=== PATIENT | male | born 1965 | race Caucasian/White ===

== ENCOUNTER 2021-01-24 07:31 | Emergency (ER) | payer OTHER ==
[~2021-01-24] VITALS: Wt 90.7 kg
[~2021-01-24 07:31] MED LIST: AVELOX400 MG PO; MOBIC15 MG PO; NORFLEX100 MG PO; PROTONIX40 MG PO; VICODIN 500 MG-1 TAB PO
[2021-01-24 09:53] LABS: HEMATOCRIT 46.5 % (42.0-52.0); MEAN CELL VOLUME 86.8 fl (80.0-94.0); MEAN CORPUSCULAR HGB CONC 34.6 g/dl (33.0-37.0); MEAN PLATELET VOLUME 10.2 fl (9.6-12.3); PLATELET COUNT AUTOMATED 130 10*3/uL (130-400); RED BLOOD COUNT 5.36 10*6/uL (4.50-5.90); RED CELL DISTRI WIDTH 12.7 % (0-14.5); WHITE BLOOD COUNT 4.5 10*3/uL (4.8-10.8)
[2021-01-24 10:04] LABS: ACT PARTIAL THROMBO TIME 33.6 SECONDS (20.0-32.1)
[2021-01-24 10:13] LABS: BURR CELLS MODERATE; PLATELET SUFFICIENCY NORMAL (NORMAL); TOTAL CELLS COUNTED 100 #CELLS
[2021-01-24 10:21] LABS: ALBUMIN 3.3 gm/dl (3.1-4.5); ALKALINE PHOSPHATASE 59 U/L (45-117); BUN 23 mg/dl (7-24); CHLORIDE 104 mmol/L (98-107); CREATININE 1.46 mg/dL (0.70-1.30); LIPASE 295 U/L (73-393); POTASSIUM 4.2 mmol/L (3.5-5.1); SGOT/AST 61 IU/L (3-35); SGPT/ALT 47 U/L (12-78); SODIUM 138 mmol/L (136-145); TOTAL PROTEIN 7.7 gm/dL (6.4-8.2)
[2021-01-24] MEDS ORDERED: ZOFRAN4 MG PO (12:15)
== END 2021-01-24 14:00 | disposition home or self-care (01) ==
LOC: ED 07:31
PROVIDERS: Emergency Medicine
DX: U07.1 COVID-19 (principal); J12.82 Pneumonia due to coronavirus disease 2019; Z79.899 Other long term (current) drug therapy